=== PATIENT | female | born 1980 | race Caucasian/White ===

== ENCOUNTER → 2017-11-02 11:44 | Outpatient (REF) | payer MEDICAID, SELFPAY | LOC: NCHCN 11:44 | PROVIDERS: PCP Physician Assistant Medical; Visit Provider Physician Assistant Medical | DX: J02.9 Acute pharyngitis, unspecified (principal) | CPT/HCPCS: 87077; 87070 ==

== ENCOUNTER 2017-12-10 17:57 | Outpatient (REF) | payer MEDICAID, SELFPAY | END 2017-12-10 18:17 | LOC: NCHCN 17:57 | PROVIDERS: PCP Physician Assistant Medical; Visit Provider Physician Assistant Medical | DX: N76.0 Acute vaginitis (principal) | CPT/HCPCS: 87480; 87510; 87660 ==

== ENCOUNTER 2018-05-03 21:14 | Outpatient (REF) | payer MEDICAID, SELFPAY ==
[2018-05-03 22:35] LABS: Abs Immature Grans 0.02 k/cumm (0.0-0.09); HCT 43.9 % (36.0-46.0); HGB 14.7 g/dL (12.0-15.5); Mean Corp. HGB Concentration 33.5 g/dL (32.0-36.0); Mean Corpuscular Hemoglobin 28.4 pg (27.0-33.0); Mean Corpuscular Volume 84.7 fL (80-95); Mean Platelet Volume 11.5 fL (8.0-11.0); Platelet Count 214 x1000/uL (130-400); RBC 5.18 m/cumm (4.00-5.20); RBC Distribution Width 13.3 % (11.7-14.6); White Blood Cell Count 9.55 k/cumm (4.4-10.8)
[2018-05-03 22:51] LABS: ALT 25 U/L (12-78); AST 20 U/L (15-37); Albumin 3.8 g/dL (3.4-5.0); Alkaline Phosphatase 84 U/L (46-116); Anion Gap 11.1 mmol/L (3-11); BUN 11 mg/dL (7-18); Bilirubin, Total 0.5 mg/dL (0.2-1.0); CO2 26.9 mmol/L (21.0-32.0); CREATININE 0.73 mg/dL (0.55-1.02); Calcium 9.2 mg/dL (8.5-10.1); Chloride 99 mmol/L (98-107); Glucose 85 mg/dL (70-100); Potassium 3.7 mmol/L (3.5-5.1); Sodium 137 mmol/L (136-145); Total Protein 7.9 g/dL (6.4-8.2)
[2018-05-03 23:16] LABS: Absolute Eosinophil Count 0.48 k/cumm (0.0-0.7); Absolute Lymphocyte Count 2.39 k/cumm (1.2-3.4); Absolute Monocyte Count 0.67 k/cumm (0.11-0.7); Absolute Neutrophil Count 6.02 k/cumm (1.2-6.7); Atypical Lymphocytes % 0
[2018-05-03 23:18] LABS: Diff Comment Manual Differential; RBC Morphology Normal
== END 2018-05-03 21:34 ==
LOC: NCHCN 21:14
PROVIDERS: PCP Physician Assistant Medical; Visit Provider Physician Assistant Medical
DX: L29.9 Pruritus, unspecified (principal)
CPT/HCPCS: 80053; 84443; 85025

== ENCOUNTER 2018-06-17 09:39 | Outpatient (CLI) | payer MEDICAID, SELFPAY ==
--- NOTE | 2018-06-17 14:20 | MERGE_ITS ---
*[facility]* *[facility]* [address] [place] [address] Date of study: 06/17/2018 Transthoracic Echocardiography M-mode, complete 2D, complete spectral Doppler, and color Doppler *STUDY CONCLUSIONS* Impressions: Normal study. Summary: 1. Left ventricle: The cavity size was normal. Wall thickness was normal. Systolic function was normal. The estimated ejection fraction was 60-65%. Wall motion was normal; there were no regional wall motion abnormalities. 2. Right ventricle: The cavity size was normal. Wall thickness was normal. Systolic function was normal. 3. Atrial septum: No defect or patent foramen ovale was identified. Agitated saline contrast study showed no shunt. *PATIENT PRESENTATION* Height: 165.1cm ((65in) ) S/D Pressure: 134 / 89 Weight: 94.3kg ((207.6lb) ) BSA: 2.12m^2 Test start time: 02:20 PM. Test stop time: 03:40 PM. PERFORMING Unknown PERFORMING [facility] CONSULTING Danielle Hoskins [employer]IONAL MARKETING MANAGER Sachi Aquino Rachel REFERRING Tanya Lucero *PROCEDURE DATA* Procedure information: This study was interpreted by [facility]. Pertinent images and digital data are archived for permanent storage and are available for subsequent review. No prior study was available for comparison. Study status: Routine. Transthoracic echocardiography. M-mode, complete 2D, complete spectral Doppler, and color Doppler. A Transthoracic Echocardiogram was performed. Scanning was performed from the parasternal, apical, subcostal, and suprasternal notch acoustic windows. Images were obtained using an [employer] 2000 cardiac ultrasound machine. Study completion: The patient tolerated the procedure well. History: PMH: Hepatic Congestion. *CARDIAC ANATOMY* Left ventricle: The cavity size was normal. Wall thickness was normal. Systolic function was normal. The estimated ejection fraction was 60-65%. Wall motion was normal; there were no regional wall motion abnormalities. Aortic valve: Trileaflet; normal thickness leaflets. Mobility was not restricted. Doppler: Transvalvular velocity was within the normal range. There was no stenosis. There was no significant regurgitation. VTI ratio of LVOT to aortic valve: 0.85. Valve area (VTI): 2.6cm^2. Indexed valve area (VTI): 1.2cm^2/m^2. Peak velocity ratio of LVOT to aortic valve: 0.81. Valve area (Vmax): 2.5cm^2. Indexed valve area (Vmax): 1.2cm^2/m^2. Mean velocity ratio of LVOT to aortic valve: 0.75. Valve area (Vmean): 2.3cm^2. Indexed valve area (Vmean): 1.1cm^2/m^2. Mean gradient (S): 5.3mm Hg. Peak gradient (S): 10mm Hg. Aorta: Aortic root: The aortic root was normal in size. Ascending aorta: The ascending aorta was normal in size. Mitral valve: Structurally normal valve. Mobility was not restricted. Doppler: Transvalvular velocity was within the normal range. There was no evidence for stenosis. There was no significant regurgitation. Valve area by pressure half-time: 3.8cm^2. Indexed valve area by pressure half-time: 1.8cm^2/m^2. Peak gradient (D): 2.2mm Hg. Left atrium: The atrium was normal in size. Atrial septum: No defect or patent foramen ovale was identified. Agitated saline contrast study showed no shunt. Right ventricle: The cavity size was normal. Wall thickness was normal. Systolic function was normal. Pulmonic valve: Poorly visualized. Doppler: Transvalvular velocity was within the normal range. There was no evidence for stenosis. There was trivial regurgitation. Peak gradient (S): 4.5mm Hg. Tricuspid valve: Structurally normal valve. Doppler: Transvalvular velocity was within the normal range. There was no evidence for stenosis. There was trivial regurgitation. Pulmonary artery: Poorly visualized. Pulmonary systolic pressure was within the normal range. Right atrium: The atrium was normal in size. Pericardium: There was no pericardial effusion. Systemic veins: Inferior vena cava: The vessel was normal in size. The respirophasic diameter changes were in the normal range (greater than or equal to 50%), consistent with normal central venous pressure. Measurements Left ventricle Value Reference LV ID, ED, PLAX 5.0 cm 3.5 - 6.0 LV ID, ES, PLAX 3.1 cm 2.1 - 4.0 LV PW thickness, ED, PLAX 0.9 cm LV end-diastolic volume, 1-p A2C 87 ml LV ejection fraction, 1-p A2C 69 % LV end-diastolic volume, 1-p A4C 85 ml LV ejection fraction, 1-p A4C 66 % LV e', lateral 0.144 m/sec LV E/e', lateral 5 LV e', medial 0.095 m/sec LV E/e', medial 8 LV e', average 0.119 m/sec LV E/e', average 6 Ventricular septum Value Reference IVS thickness, ED, PLAX 0.9 cm LVOT Value Reference LVOT ID, A-P 2.0 cm LVOT area 3.1 cm^2 LVOT peak velocity, S 1.29 m/sec LVOT mean velocity, S 0.81 m/sec LVOT VTI, S 26.4 cm LVOT peak gradient, S 6.6 mm Hg LVOT mean gradient, S 3.2 mm Hg Stroke volume (SV), LVOT DP 82 ml Stroke index (SV/bsa), LVOT DP 39 ml/m^2 Aortic valve Value Reference Aortic valve peak velocity, S 1.6 m/sec Aortic valve mean velocity, S 1.09 m/sec Aortic valve VTI, S 31.0 cm Aortic mean gradient, S 5.3 mm Hg Aortic peak gradient, S 10 mm Hg VTI ratio, LVOT/AV 0.85 Aortic valve area, VTI 2.6 cm^2 Velocity ratio, peak, LVOT/AV 0.81 Aortic valve area, peak velocity 2.5 cm^2 Velocity ratio, mean, LVOT/AV 0.75 Aortic valve area, mean velocity 2.3 cm^2 Aortic valve area/bsa, mean velocity 1.1 cm^2/m^2 Aorta Value Reference Aortic root ID, ED 3.1 cm Ascending aorta ID, A-P, S 2.9 cm Left atrium Value Reference LA area, ES, A4C 19.9 cm^2 8.8 - 23.4 LA area, ES, A2C 15 cm^2 LA volume/bsa, S 25 ml/m^2 LA volume, ES, 2-p 47 ml LA volume/bsa, ES, 2-p 22 ml/m^2 Mitral valve Value Reference Mitral E-wave peak velocity 0.74 m/sec Mitral A-wave peak velocity 0.68 m/sec Mitral deceleration time 198 ms 150 - 230 Mitral pressure half-time 57 ms Mitral peak gradient, D 2.2 mm Hg Mitral E/A ratio, peak 1.09 Mitral valve area, PHT, DP 3.8 cm^2 Pulmonary arteries Value Reference PA pressure, S, DP 30 mm Hg <=30 Tricuspid valve Value Reference Tricuspid regurg peak velocity 2.5 m/sec Tricuspid peak RV-RA gradient 24.1 mm Hg Right atrium Value Reference RA area, ES, A4C 12.7 cm^2 8.3 - 19.5 Systemic veins Value Reference Estimated CVP 10 mm Hg Right ventricle Value Reference RV pressure, S, DP (H) 34 mm Hg <=30 Pulmonic valve Value Reference Pulmonic peak gradient, S 4.5 mm Hg Legend: (L) and (H) dia values outside specified reference range. I have personally reviewed the images and have reviewed and edited the reported findings. Electronically signed by Ishan Rachel 06/19/2018 20:41
== END 2018-06-17 09:59 ==
PROVIDERS: PCP Physician Assistant Medical; Visit Provider Nurse Practitioner Adult Health
DX: K76.1 Chronic passive congestion of liver (principal); Z13.6 Encounter for screening for cardiovascular disorders
CPT/HCPCS: 93306

== ENCOUNTER 2018-08-15 14:32 | Outpatient (REF) | payer MEDICAID, SELFPAY ==
[2018-08-15 21:21] LABS: ALT 27 U/L (12-78); AST 21 U/L (15-37); Albumin 3.7 g/dL (3.4-5.0); Alkaline Phosphatase 76 U/L (46-116); Bilirubin, Direct 0.11 mg/dL (0.00-0.20); Bilirubin, Total 0.4 mg/dL (0.2-1.0); Total Protein 7.1 g/dL (6.4-8.2)
== END 2018-08-15 14:52 ==
LOC: LBN 14:32
PROVIDERS: PCP Physician Assistant Medical; Visit Provider Nurse Practitioner Adult Health
DX: R79.89 Other specified abnormal findings of blood chemistry (principal); R74.8 Abnormal levels of other serum enzymes
CPT/HCPCS: 80076

== ENCOUNTER 2018-12-30 14:34 | Outpatient (REF) | payer MEDICAID, SELFPAY ==
[2018-12-30 19:25] LABS: ALT 26 U/L (14-59); AST 20 U/L (15-37); Albumin 3.6 g/dL (3.4-5.0); Alkaline Phosphatase 81 U/L (46-116); Bilirubin, Direct 0.08 mg/dL (0.00-0.20); Bilirubin, Total 0.2 mg/dL (0.2-1.0); Total Protein 7.3 g/dL (6.4-8.2)
== END 2018-12-30 14:54 ==
LOC: LBN 14:34
PROVIDERS: PCP Physician Assistant Medical; Visit Provider Nurse Practitioner Adult Health
DX: R74.8 Abnormal levels of other serum enzymes (principal)
CPT/HCPCS: 80076

== ENCOUNTER 2019-03-10 13:07 | Outpatient (REF) | payer MEDICAID, SELFPAY ==
[2019-03-10 18:43] LABS: Hemoglobin A1C 5.3 % (4.5-6.2)
[2019-03-10 18:55] LABS: TSH 0.33 uIU/mL (0.36-3.74)
[2019-03-13 08:44] LABS: Vitamin D 25 Total 25.6 ng/ml (30-100)
[2019-03-13 10:31] LABS: Thyroglobulin Antibody 119 U/mL (<=60); Thyroperoxidase Antibody 94 U/mL (<=60)
== END 2019-03-10 13:27 ==
LOC: NCHCN 13:07
PROVIDERS: PCP Physician Assistant Medical; Visit Provider Physician Assistant Medical
DX: R53.83 Other fatigue (principal); E03.9 Hypothyroidism, unspecified
CPT/HCPCS: 82306; 86376; 83036; 84443

== ENCOUNTER 2019-08-11 17:24 | Outpatient (REF) | payer MEDICAID, SELFPAY ==
[2019-08-13 07:11] LABS: COVID-19 RT-PCR Result NEGATIVE (Negative)
== END 2019-08-11 17:44 ==
LOC: NCHCN 17:24
PROVIDERS: PCP Physician Assistant Medical; Visit Provider Nurse Practitioner Family
DX: R50.9 Fever, unspecified (principal)
CPT/HCPCS: U0003

== ENCOUNTER 2019-08-29 02:17 | Outpatient (CLI) | payer MEDICAID, SELFPAY ==
--- NOTE | 2019-08-29 | DI.MAMMO_ITS ---
EXAM: MAMMO SCREENING CLINICAL HISTORY: HEALTH MAINTENANCE EXAM Z00.8 TECHNIQUE: Mammograms were interpreted according to the usual protocol including computer analysis w [employer] CAD system, tomosynthesis and C-view imaging. COMPARISON: FINDINGS: The breasts are of moderate density with fairly symmetrical distribution of fibroglandular tissue. N o dominant mass or clumped microcalcification is identified in either breast. Today's examination is a baseline examination. IMPRESSION: No specific evidence of malignancy at this time. Routine screening examinations are suggested at yea rly intervals according to the ACR guidelines. BI-RADS Cat 1 - Negative: Breast Density - Category B - Scattered areas of fibroglandular density
== END 2019-08-29 02:37 ==
PROVIDERS: PCP Physician Assistant Medical; Visit Provider Physician Assistant Medical
DX: Z12.31 Encounter for screening mammogram for malignant neoplasm of breast (principal)
CPT/HCPCS: 77063; 77067

== ENCOUNTER 2019-09-04 14:36 | Outpatient (REF) | payer MEDICAID, SELFPAY ==
[2019-09-06 19:11] LABS: COVID-19 RT-PCR UVMMC Result Negative (Negative)
== END 2019-09-04 14:56 ==
LOC: NCHCN 14:36
PROVIDERS: PCP Physician Assistant Medical; Visit Provider Nurse Practitioner Family
DX: J06.9 Acute upper respiratory infection, unspecified (principal)
CPT/HCPCS: U0003

== ENCOUNTER 2020-05-06 15:57 | Outpatient (REF) | payer MEDICAID, SELFPAY ==
[2020-05-06 19:35] LABS: Abs Immature Grans 0.01 10^3/uL (0.0-0.06); Absolute Basophil Count 0.04 10^3/uL (0.0-0.2); Absolute Eosinophil Count 0.78 10^3/uL (0.0-0.7); Absolute Lymphocyte Count 1.66 10^3/uL (1.2-3.4); Absolute Monocyte Count 0.59 10^3/uL (0.1-0.8); Absolute Neutrophil Count 5.14 10^3/uL (1.2-6.7); Basophils % 0.5; Eosinophils % 9.5; HGB 13.7 g/dL (11.2-15.7); Immature Grans % 0.1; Lymphocytes % 20.2; MCH 27.2 pg (27.0-33.0); MCHC 32.6 % (32.0-36.0); MCV 83.3 fL (80-95); Monocytes % 7.2; Neutrophils % 62.5; Nucleated RBC 0 %; Platelet Count 243 10^3/uL (130-400); RBC 5.04 10^6/uL (3.93-5.22); RDW 12.5 % (11.7-14.6); RDW-SD 38.1 fL; WBC 8.22 10^3/uL (4.4-10.8)
[2020-05-06 20:44] LABS: ALT 28 U/L (14-59); AST 22 U/L (15-37); Albumin 3.6 g/dL (3.4-5.0); Alkaline Phosphatase 86 U/L (46-116); Anion Gap 7.5 mmol/L (3-11); BUN 11 mg/dL (7-18); Bilirubin, Total 0.5 mg/dL (0.2-1.0); CO2 26.5 mmol/L (21.0-32.0); CREATININE 0.7 mg/dL (0.55-1.02); Calcium 9.1 mg/dL (8.5-10.1); Calculated LDL 95 mg/dL (<100); Chloride 103 mmol/L (98-107); Cholesterol 145 mg/dL (<200); Glucose 83 mg/dL (74-106); HDL Cholesterol 43 mg/dL (40-60); Potassium 4.1 mmol/L (3.5-5.1); Sodium 137 mmol/L (136-145); TSH 0.17 uIU/mL (0.36-3.74); Total Protein 7.5 g/dL (6.4-8.2); Triglyceride 38 mg/dL (<150)
== END 2020-05-06 15:58 | disposition home or self-care (01) ==
LOC: NCHCN 15:57
PROVIDERS: PCP Physician Assistant Medical; Visit Provider Physician Assistant Medical
DX: E03.9 Hypothyroidism, unspecified (principal); R79.89 Other specified abnormal findings of blood chemistry; N94.6 Dysmenorrhea, unspecified
CPT/HCPCS: 80053; 80061; 84443; 85025

== ENCOUNTER 2020-07-26 19:25 | Outpatient (REF) | payer MEDICAID, SELFPAY ==
[2020-07-28 11:02] LABS: COVID-19 RT-PCR UVMMC Result Negative (Negative)
== END 2020-07-26 19:26 | disposition home or self-care (01) ==
LOC: NCHCN 19:25
PROVIDERS: PCP Physician Assistant Medical; Visit Provider Physician Assistant Medical
DX: Z20.822 Contact with and (suspected) exposure to COVID-19 (principal)
CPT/HCPCS: U0003

== ENCOUNTER 2020-07-30 15:14 | Outpatient (REF) | payer MEDICAID, SELFPAY ==
[2020-07-31 15:16] LABS: COVID-19 RT-PCR UVMMC Result Negative (Negative)
== END 2020-07-30 15:15 | disposition home or self-care (01) ==
LOC: NCHCN 15:14
PROVIDERS: PCP Physician Assistant Medical; Visit Provider Physician Assistant Medical
DX: Z20.822 Contact with and (suspected) exposure to COVID-19 (principal)
CPT/HCPCS: U0003

== ENCOUNTER 2020-08-02 17:52 | Outpatient (REF) | payer MEDICAID, SELFPAY ==
[2020-08-03 15:53] LABS: COVID-19 RT-PCR UVMMC Result Negative (Negative)
== END 2020-08-02 17:53 | disposition home or self-care (01) ==
LOC: NCHCN 17:52
PROVIDERS: PCP Physician Assistant Medical; Visit Provider Physician Assistant Medical
DX: Z20.822 Contact with and (suspected) exposure to COVID-19 (principal)
CPT/HCPCS: U0003

== ENCOUNTER 2020-11-21 15:51 | Outpatient (REF) | payer MEDICAID, SELFPAY ==
[2020-11-22 11:21] LABS: COVID-19 RT-PCR UVMMC Result Negative (Negative)
== END 2020-11-21 15:52 | disposition home or self-care (01) ==
LOC: NCHCN 15:51
PROVIDERS: PCP Physician Assistant Medical; Visit Provider Physician Assistant Medical
DX: Z20.822 Contact with and (suspected) exposure to COVID-19 (principal)
CPT/HCPCS: U0003

== ENCOUNTER 2020-12-18 12:06 | Outpatient (REF) | payer MEDICAID, SELFPAY ==
[2020-12-19 01:50] LABS: COVID-19 RT-PCR UVMMC Result Negative (Negative)
== END 2020-12-18 12:07 | disposition home or self-care (01) ==
LOC: NCHCN 12:06
PROVIDERS: Visit Provider Physician Assistant Medical
DX: Z11.52 Encounter for screening for COVID-19 (principal)
CPT/HCPCS: U0003

== ENCOUNTER 2020-12-31 10:08 | Outpatient (REF) | payer MEDICAID, SELFPAY ==
[2021-01-01 16:28] LABS: COVID-19 RT-PCR UVMMC Result Negative (Negative)
== END 2020-12-31 10:09 | disposition home or self-care (01) ==
LOC: NCHCN 10:08
PROVIDERS: Visit Provider Physician Assistant Medical
DX: Z20.822 Contact with and (suspected) exposure to COVID-19 (principal); R51.9 Headache, unspecified
CPT/HCPCS: U0003

== ENCOUNTER 2021-01-08 11:40 | Outpatient (REF) | payer MEDICAID, SELFPAY ==
[2021-01-10 01:01] LABS: COVID-19 RT-PCR UVMMC Result Negative (Negative)
== END 2021-01-08 11:41 | disposition home or self-care (01) ==
LOC: NCHCN 11:40
PROVIDERS: Visit Provider Nurse Practitioner Family
DX: Z20.822 Contact with and (suspected) exposure to COVID-19 (principal); R51.9 Headache, unspecified
CPT/HCPCS: U0003

== ENCOUNTER 2021-02-14 09:19 | Outpatient (REF) | payer MEDICAID, SELFPAY ==
[2021-02-15 12:50] LABS: COVID-19 RT-PCR UVMMC Result Negative (Negative)
== END 2021-02-14 09:20 | disposition home or self-care (01) ==
LOC: NCHCN 09:19
PROVIDERS: Visit Provider Physician Assistant Medical
DX: Z20.822 Contact with and (suspected) exposure to COVID-19 (principal); R51.9 Headache, unspecified
CPT/HCPCS: U0003

== ENCOUNTER 2021-02-17 08:15 | Outpatient (REF) | payer MEDICAID, SELFPAY ==
[2021-02-19 12:45] LABS: COVID-19 RT-PCR UVMMC Result Negative (Negative)
== END 2021-02-17 08:16 | disposition home or self-care (01) ==
LOC: NCHCN 08:15
PROVIDERS: Visit Provider Physician Assistant Medical
DX: Z20.822 Contact with and (suspected) exposure to COVID-19 (principal); R51.9 Headache, unspecified
CPT/HCPCS: U0003

== ENCOUNTER 2021-02-28 14:54 | Outpatient (REF) | payer MEDICAID, SELFPAY ==
[2021-03-01 02:16] LABS: COVID-19 RT-PCR UVMMC Result Negative (Negative)
== END 2021-02-28 14:55 | disposition home or self-care (01) ==
LOC: NCHCN 14:54
PROVIDERS: PCP Physician Assistant Medical; Visit Provider Physician Assistant Medical
DX: Z20.822 Contact with and (suspected) exposure to COVID-19 (principal); R09.81 Nasal congestion
CPT/HCPCS: U0003

== ENCOUNTER 2021-03-03 18:37 | Outpatient (REF) | payer MEDICAID, SELFPAY ==
[2021-03-04 20:24] LABS: COVID-19 RT-PCR UVMMC Result Negative (Negative)
== END 2021-03-03 18:38 | disposition home or self-care (01) ==
LOC: NCHCN 18:37
PROVIDERS: PCP Physician Assistant Medical; Visit Provider Physician Assistant Medical
DX: Z20.822 Contact with and (suspected) exposure to COVID-19 (principal); R05.8 Other specified cough
CPT/HCPCS: U0003

== ENCOUNTER 2021-03-17 12:15 | Outpatient (REF) | payer MEDICAID, SELFPAY ==
[2021-03-18 20:15] LABS: COVID-19 RT-PCR UVMMC Result Negative (Negative)
== END 2021-03-17 12:16 | disposition home or self-care (01) ==
LOC: NCHCN 12:15
PROVIDERS: PCP Physician Assistant Medical; Visit Provider Physician Assistant Medical
DX: Z20.822 Contact with and (suspected) exposure to COVID-19 (principal); R09.81 Nasal congestion
CPT/HCPCS: U0003

== ENCOUNTER 2021-04-04 15:04 | Outpatient (REF) | payer MEDICAID, SELFPAY ==
[2021-04-06 18:47] LABS: COVID-19 RT-PCR UVMMC Result Negative (Negative)
== END 2021-04-04 15:05 | disposition home or self-care (01) ==
LOC: NCHCN 15:04
PROVIDERS: PCP Physician Assistant Medical; Visit Provider Physician Assistant Medical
DX: Z20.822 Contact with and (suspected) exposure to COVID-19 (principal)
CPT/HCPCS: U0003

== ENCOUNTER 2021-04-09 15:15 | Outpatient (REF) | payer MEDICAID, SELFPAY ==
[2021-04-10 16:06] LABS: COVID-19 RT-PCR UVMMC Result Negative (Negative)
== END 2021-04-09 15:16 | disposition home or self-care (01) ==
LOC: NCHCN 15:15
PROVIDERS: PCP Physician Assistant Medical; Visit Provider Physician Assistant Medical
DX: Z20.822 Contact with and (suspected) exposure to COVID-19 (principal)
CPT/HCPCS: U0003

== ENCOUNTER 2021-04-23 09:29 | Outpatient (REF) | payer MEDICAID, SELFPAY ==
[2021-04-23 23:18] LABS: COVID-19 RT-PCR UVMMC Result Negative (Negative)
== END 2021-04-23 09:30 | disposition home or self-care (01) ==
LOC: NCHCN 09:29
PROVIDERS: PCP Physician Assistant Medical; Visit Provider Physician Assistant Medical
DX: Z20.822 Contact with and (suspected) exposure to COVID-19 (principal); R09.81 Nasal congestion
CPT/HCPCS: U0003

== ENCOUNTER 2021-04-25 15:10 | Outpatient (REF) | payer MEDICAID, SELFPAY ==
--- NOTE | 2021-04-25 14:00 | PAPFT_PTH ---
PATIENT: Melany Mills LOC: [facility] U#:[id number] AGE/SX: 40/F ROOM: RE04/25/[address]: Tania Mathias MD : 1980 BED: DIS: 04/25/2021 SPEC #: [id number] RECD: 04/25/21 16:57 STATUS: ANDRA REQ #: [id number] SYDNEE: 04/25/21 14:[address]: Tania Mathias [facility]PT[facility] Cytology RECD BY: Page Cesar ENTERED: 04/25/21 16:58 SP TYPE: PAPFT OTHR DR: Danielle Hoskins Tissues: 1 - CX/ENDOCX FOR PAP SMEARS Procedures: PAP THIN PREP/UVM Screening HPV DNA PROBE Comments: [id number]
--- NOTE | 2021-04-25 14:00 | ENDOMET_PTH ---
PATIENT: Melany Mills LOC: [facility] U#:[id number] AGE/SX: 40/F ROOM: RE04/25/[address]: Tania Mathias MD : 1980 BED: DIS: 04/25/2021 SPEC #: [id number] RECD: 04/25/21 16:49 STATUS: ANDRA REQ #: [id number] SYDNEE: 04/25/21 14:[address]: Tania Mathias DEPT: Surgical Specimen RECD BY: Page Cesar ENTERED: 04/25/21 16:50 SP TYPE: Endomet OTHR DR: Danielle Hoskins Tissues: 1 - ENDOMETRIUM BX/CURRETTE Procedures: GROSS AND MICRO LEVEL 4 Comments: [id number]
== END 2021-04-25 15:11 | disposition home or self-care (01) ==
LOC: LBN 15:10
PROVIDERS: PCP Physician Assistant Medical; Visit Provider Obstetrics & Gynecology
DX: N93.8 Other specified abnormal uterine and vaginal bleeding (principal)
CPT/HCPCS: 88142; 88305; 87624

== ENCOUNTER 2021-05-01 15:59 | Outpatient (REF) | payer MEDICAID, SELFPAY ==
[2021-05-01 21:13] LABS: COVID-19 RT-PCR UVMMC Result Negative (Negative)
== END 2021-05-01 16:00 | disposition home or self-care (01) ==
LOC: NCHCN 15:59
PROVIDERS: PCP Physician Assistant Medical; Visit Provider Physician Assistant Medical
DX: Z20.822 Contact with and (suspected) exposure to COVID-19 (principal)
CPT/HCPCS: U0003

== ENCOUNTER 2021-05-06 01:11 | Outpatient (CLI) | payer MEDICAID, SELFPAY ==
--- NOTE | 2021-05-06 08:00 | DI.US_ITS ---
Exam(s) US PELVIS TRANSVAGINAL EXAM: US PELVIS TRANSVAGINAL CLINICAL HISTORY: check fibroids,PELVIC PRESSURE,R10.2. TECHNIQUE: Transabdominal and transvaginal pelvic ultrasound was performed using standard protocol. COMPARISON: US PELVIS TRANSVAG from 08/05/2016 FINDINGS: KIDNEYS: Kidneys are symmetric in size. No evidence of renal calculi. No evidence of hydronephrosis. No renal mass or cyst identified. UTERUS: Position: Anteverted. Size: 8 long by 5 AP by 5.1 transverse cm Endometrium: 0.3 cm. Normal for patient's menstrual status. Myometrium: Heterogeneous. The previously noted area in the posterior body of the uterus is not well evaluated on this current examination. The fundus of the uterus has a heterogeneous appearance. An ill-defined area up to 4.1 cm is seen and may represent a fibroid. Cervix: Unremarkable. OVARIES: Right: 3 x 2.4 x 1.9 cm Cyst or mass: None. Left: 1.9 x 2.6 x 1.5 cm Cyst or mass: None. DOPPLER: Color: Symmetric and uniform flow to both ovaries. No hyperemia. CUL-DE-SAC: Free fluid: None. Other: None. IMPRESSION: 1. Normal sonographic appearance of the kidneys. 2. Heterogeneous uterus. The previously seen posterior uterine body fibroid cannot be seen on the cu rrent examination. There is a question of a fundal uterine fibroid. If there is continued clinical concern, an MRI may be obtained for further evaluation. 3. Unremarkable bilateral ovaries. DATA REPOSITORY:
== END 2021-05-06 01:31 ==
PROVIDERS: PCP Physician Assistant Medical; Visit Provider Obstetrics & Gynecology
DX: R10.2 Pelvic and perineal pain (principal); D25.9 Leiomyoma of uterus, unspecified
CPT/HCPCS: 76830; 76856

== ENCOUNTER 2021-05-20 10:41 | Outpatient (REF) | payer MEDICAID, SELFPAY ==
[2021-05-21 09:29] LABS: COVID-19 RT-PCR UVMMC Result Positive (Negative)
== END 2021-05-20 10:42 | disposition home or self-care (01) ==
LOC: NCHCN 10:41
PROVIDERS: PCP Physician Assistant Medical; Visit Provider Physician Assistant Medical
DX: Z20.822 Contact with and (suspected) exposure to COVID-19 (principal)
CPT/HCPCS: U0003

== ENCOUNTER 2021-06-10 18:22 | Outpatient (REF) | payer MEDICAID, SELFPAY ==
[2021-06-10 12:59] LABS: TSH (W/Ref FT4) 0.29 uIU/mL (0.36-3.74)
[2021-06-10 13:16] LABS: FREE T4 1.47 ng/dL (0.76-1.46)
== END 2021-06-10 18:23 | disposition home or self-care (01) ==
LOC: NCHCN 18:22
PROVIDERS: PCP Physician Assistant Medical; Visit Provider Physician Assistant Medical
DX: E03.9 Hypothyroidism, unspecified (principal)
CPT/HCPCS: 84439; 84443

== ENCOUNTER 2021-11-24 10:52 | Outpatient (REF) | payer MEDICAID, SELFPAY | END 2021-11-24 10:53 | disposition home or self-care (01) | LOC: NCHCN 10:52 | PROVIDERS: PCP Physician Assistant Medical; Visit Provider Physician Assistant Medical | DX: E03.9 Hypothyroidism, unspecified (principal) | CPT/HCPCS: 84443 ==

== ENCOUNTER → 2022-02-24 12:35 | Outpatient (CLI) | payer MEDICAID, SELFPAY ==
--- NOTE | 2022-02-24 | DI.RAD_ITS ---
Exam(s) XR CHEST 2V PA LATERAL EXAM: XR CHEST 2V PA LATERAL CLINICAL HISTORY: COUGH 3-4 WKS, R05.8, ? INFECTIOUS PROCESS TECHNIQUE: 2D digital imaging was performed of the chest. Two images were obtained. PA and lateral views were obtained. COMPARISON: No exams were available for comparison FINDINGS: MEDIASTINUM: Normal. HEART: Normal. PULMONARY VASCULATURE: Normal. LUNGS: Clear. PLEURAL SPACE: No pleural effusion or pneumothorax. BONE:Within normal limits for the patient's age. OTHER FINDINGS:Normal. IMPRESSION: No acute pulmonary findings. DATA REPOSITORY: RADIATION DOSE DELIVERED:
== END ==
PROVIDERS: PCP Physician Assistant Medical; Visit Provider Nurse Practitioner Family
DX: R05.8 Other specified cough (principal)
CPT/HCPCS: 71046

== ENCOUNTER 2022-07-31 15:41 | Outpatient (REF) | payer MEDICAID, SELFPAY ==
[2022-07-31 16:20] LABS: ALT 40 U/L (14-59); AST 27 U/L (15-37); Albumin 3.8 g/dL (3.4-5.0); Alkaline Phosphatase 112 U/L (46-116); Anion Gap 10.1 mmol/L (3-11); BUN 12 mg/dL (7-18); Bilirubin, Total 0.3 mg/dL (0.2-1.0); CO2 24.9 mmol/L (21.0-32.0); CREATININE 0.8 mg/dL (0.55-1.02); Calcium 9.2 mg/dL (8.5-10.1); Calculated LDL 112 mg/dL (<100); Chloride 102 mmol/L (98-107); Cholesterol 177 mg/dL (<200); Glucose 102 mg/dL (74-106); HDL Cholesterol 45 mg/dL (40-60); Potassium 3.9 mmol/L (3.5-5.1); Sodium 137 mmol/L (136-145); TSH 4.75 uIU/mL (0.36-3.74); Total Protein 8.4 g/dL (6.4-8.2); Triglyceride 101 mg/dL (<150)
== END 2022-07-31 15:42 | disposition home or self-care (01) ==
LOC: NCHCN 15:41
PROVIDERS: PCP Physician Assistant Medical; Visit Provider Physician Assistant Medical
DX: R79.89 Other specified abnormal findings of blood chemistry (principal); E03.9 Hypothyroidism, unspecified
CPT/HCPCS: 80053; 80061; 84443

== ENCOUNTER 2022-08-10 02:53 | Outpatient (CLI) | payer MEDICAID, SELFPAY ==
[2022-08-10 15:30] LABS: HCT 38.4 % (36.0-46.0); HGB 12.5 g/dL (11.2-15.7); MCH 25.6 pg (27.0-33.0); MCHC 32.6 % (32.0-36.0); MCV 79 fL (80-95); Platelet Count 264 10^3/uL (130-400); RBC 4.88 10^6/uL (3.93-5.22); RDW 13.8 % (11.7-14.6); RDW-SD 39.1 fL; WBC 9.17 10^3/uL (4.4-10.8)
== END 2022-08-10 02:54 | disposition home or self-care (01) ==
LOC: LBO 02:53
PROVIDERS: PCP Physician Assistant Medical; Visit Provider Obstetrics & Gynecology
DX: N92.0 Excessive and frequent menstruation with regular cycle (principal); Z01.818 Encounter for other preprocedural examination; Z01.812 Encounter for preprocedural laboratory examination
CPT/HCPCS: 36415; 85027; 86850; 86900; 86901

== ENCOUNTER 2022-08-12 06:13 | Day surgery (SDC) | payer MEDICAID, SELFPAY ==
[2022-08-12] VITALS (7 sets, daily range): BP systolic 117–141; BP diastolic 60–93; PULSE 70–88; RESP 14–18; TEMP 36.2–37.1; O2SAT 94–100; BMI 43.0
[2022-08-12] MEDS: Lactated Ringers 1,000 ML 125 ML IV (07:05)
--- NOTE | 2022-08-12 07:14 | W.ANESPRE ---
General Info Date of Service Date Performed: 08/12/22 Height: 5 ft 5 in Weight: 117.3 kg Body Mass Index (BMI): 43.0 Surgical Procedure: Operation Date: 08/12/22 07:40 Proposed Procedure Side Surgeon p Endometrial Ablation- Isaias Mathias MD Meds Allergies and Home Medications Allergies Allergy/AdvReac Type Severity Reaction Status Date / Time erythromycin base AdvReac Intermediate hives all Unverified 08/12/22 06:28 over body Home Medication Medication Instructions Recorded ibuprofen 200 mg capsule 200 mg PO PRN 08/20/16 multivitamin (Daily Multiple 1 ea PO DAILY 08/20/16 tablet) citalopram 20 mg tablet (Celexa) 20 mg PO DAILY 02/12/20 levothyroxine 175 mcg tablet 175 mcg PO DAILY 02/12/20 Current Visit Medications: Current Medications Generic Name Dose Route Start Last Admin Trade Name Freq PRN Reason Stop Dose Admin Ringer's Solution 1,000 mls @ 125 mls/hr 08/12/22 06:00 08/12/22 07:05 IV 09/10/22 23:59 125 mls/hr INFUSION GARO Administration IV Miscellaneous Supplies 1 each 08/12/22 06:00 Iv Access IV 09/10/22 23:59 DIRECTED GARO Sodium Chloride 0 ml 08/12/22 06:00 Normal Saline Flush 10 Ml Syr IV 09/10/22 23:59 PRN PRN Sodium Chloride 0 ml 08/12/22 06:00 Normal Saline 10 Ml Vial IJ 09/10/22 23:59 DIRECTED PRN Sterile Water 0 ml 08/12/22 06:00 Water,Injection,Sterile 10 Ml Vial IJ 09/10/22 23:59 DIRECTED PRN PFSH Active Problems Active Problems: Problem Status Onset Code 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 Chronic depression F32.9 Medical History Medical History (Updated 08/12/22 @ 07:07 by Ela Nichols RN) BMI 40.0-44.9, adult Hypothyroid Irregular bleeding Otalgia, right ear Pelvic pain Pelvic pressure in female Sleep apnea ARIELLE (stress urinary incontinence, female) Uterine leiomyoma (08/20/16) Medical History Comments:: pt was never totally out for either biopsy (liver or thyroid) so no significant anesthesia history Surgical History Surgical History (Updated 08/12/22 @ 06:28 by Ela Nichols RN) History of liver biopsy S/P thyroidectomy pt reports only having biopsy to thyroid done Tobacco Smoking/Tobacco Use Status: Former Tobacco Use Passive smoking exposure: No Alcohol Alcohol Intake: current Alcohol intake frequency: a few times a month Substance Use Substance use: Never Details: alcohol t-3, 1 beer Prental History History 1 Para 1 Hx # Term Pregnancies Multiple births Hx # Pregnancies Ectopic pregnancies AB induced Hx Number of Living Children AB spontaneous Past Pregnancies Del. Date GA/Weeks # Preg Succ Route Wgt Sex Labor Lgth Anesthesia Location Prov [facility] 11/14/00 40 No vaginal 3798.836 g Male LR Vital Signs and Lab Results Vital Signs Most Recent Vital Signs in EMR: Most Recent Vital Signs Temp Pulse Resp BP Pulse Ox 37.1 C 70 18 141/93 H 97 08/12/22 06:29 08/12/22 06:29 08/12/22 06:29 08/12/22 06:29 08/12/22 06:29 Point of Care Results Point of Care Results: POC- Test(urine) Negative 08/12/22 06:51 Lab Results Blood Type / Crossmatch: Patient ABO/Rh O Negative 08/10/22 Antibody Screen NEGATIVE 08/10/22 Complete Blood Count: White Blood Count 9.17 10^3/uL (4.4-10.8) 08/10/22 15:05 Red Blood Count 4.88 10^6/uL (3.93-5.22) 08/10/22 15:05 Hemoglobin 12.5 g/dL (11.2-15.7) 08/10/22 15:05 Hematocrit 38.4 % (36.0-46.0) 08/10/22 15:05 Platelet Count 264 10^3/uL (130-400) 08/10/22 15:05 Complete Metabolic Panel: Sodium 137 mmol/L (136-145) 07/31/22 13:00 Potassium 3.9 mmol/L (3.5-5.1) 07/31/22 13:00 Chloride 102 mmol/L (98-107) 07/31/22 13:00 Carbon Dioxide 24.9 mmol/L (21.0-32.0) 07/31/22 13:00 BUN 12 mg/dL (7-18) 07/31/22 13:00 Creatinine 0.8 mg/dL (0.55-1.02) 07/31/22 13:00 Est GFR (CKD-EPI 2020) 93.70 (mL/min/1.73m2) 07/31/22 13:00 Calcium 9.2 mg/dL (8.5-10.1) 07/31/22 13:00 Albumin 3.8 g/dL (3.4-5.0) 07/31/22 13:00 Glucose 102 mg/dL (74-106) 07/31/22 13:00 Liver Function Panel: Alanine Aminotransferase (ALT/SGPT) 40 U/L (14-59) 07/31/22 13:00 Aspartate Amino Transf (AST/SGOT) 27 U/L (15-37) 07/31/22 13:00 Coagulation Panel: No Data to Display Cardiac Panel: No Data to Display Arterial Blood Gas: No Data to Display Venous Blood Gas: No Data to Display Pancreas Panel: No Data to Display Thyroid Panel: Thyroid Stimulating Hormone (TSH) 4.75 uIU/mL (0.36-3.74) H 07/31/22 13:00 Infectious Disease: No Data to Display Blood Cultures: No Data to Display Toxicology Panel: No Data to Display Panel: No Data to Display Anesthesia Assessment and Plan Anesthesia History Personal History: No History of Anesthesia Complications Family History: No Family History of Anesthesia Complications Exercise Tolerance Exercise Tolerance: Metabolic Equivalents>4 Pertinent Negatives Pertinent Negatives: No Symptoms of GERD Cardiac & Pulmonary Exam Cardiac Exam: Normal S1/S2 Heart Sounds Pulmonary Exam: Clear Bilateral Breath Sounds Implantable Cardiac Device Does patient have a Pacemaker or an ICD?: No Airway Exam Known Difficult Airway: No Mallampati Class: 2 Mouth Opening: Normal (> 3cm) Thyromental Distance: Greater than 3 cm Neck Range of Motion: Full ROM Neck Circumference: Normal Teeth Condition: Normal Dentition ASA Classification ASA Score: ASA 1 Emergency Case?: No NPO Status NPO Status: NPO Clears >2 hours, Solids >8 hours Status Status: Not Relevant due to Medical History Anesthesia Plan Resuscitation Status: Full Code Anesthesia Technique: General Anesthesia Airway Planned: LMA Monitors Used: Standard Monitors
--- NOTE | 2022-08-12 08:17 | ROE_ITS ---
Date of service: 08/12/22 Time of Service: 07:30 Operative Note Operative Note DATE OF PROCEDURE: 08/12/22 PRE-OP DIAGNOSIS: Abnormal uterine bleeding POST-OP DIAGNOSIS: same PROCEDURE: Novasure endometrial ablation SURGEON: Tania Mathias Refer to Anesthesia Record ESTIMATED BLOOD LOSS: 0 COMPLICATIONS: None Patient was transported to: PACU Patient's condition: stable Indications: Pt has had heavy bleeding for a while refractory to nexplanon. She tried an IUD that fell out. She had a benign endometrial biopsy. Her has a vasectomy and she desires more definitive treatment with endometrial ablation. Findings: Normal external genitalia and normal sized uterus. Total length 10.5cm Cavity length 5cm Cavity width 4.6cm Total time for ablation: 1min 20sec Procedure Description: After informed consent was signed the patient was taken to the operating room and given General room air anesthesia.? SCDs were placed on her legs.? She was prepped and draped in the dorsal lithotomy position in the [facility].? A time out was performed. Her bladder was drained of urine if not done just prior to arrival to the room.? Exam under anesthesia revealed normal external genitalia, vagina normal for age and a normal sized uterus. A speculum was placed into the vagina to reveal the cervix.? The anterior lip of the cervix was grasped with a single tooth tenaculum.? The cervical length was measured with a large dilator. The cervix was then dilated until a uterine sound could be inserted to measure the total length. The?cavity length was then calculated. The novasure device was opened and the cavity length set. It was inserted into the endometrial cavity and the width was measured. The cavity assessment was performed and passed. The device was then deployed for the appropriate amount of time. The device was removed and the wand inspected and appeared thoroughly charred. The tenaculum was removed from the cervix with good hemostasis.? The speculum was removed from the vagina. The patient was placed back into the supine position.? She was moved to the stretcher and taken to the recovery room in stable condition.
--- NOTE | 2022-08-12 08:36 | W.ANESPOSTOP ---
Postoperative Evaluation Date, Time and Location Date Performed: 08/12/22 Time Performed: 08:37 Patient Location: PACU Vital Signs Most Recent Imported Vital Signs: Most Recent Vital Signs Temp Pulse Resp BP Pulse Ox 36.7 C 81 15 130/78 98 08/12/22 08:25 08/12/22 08:25 08/12/22 08:25 08/12/22 08:25 08/12/22 08:25 Pain Score Most Recent Pain Score: Most Recent Pain Score Pain Level 0 08/12/22 08:25 Assessment Mental Status: Awake (Alert & Oriented to Patient Baseline) Airway and Respiratory Function: Patent airway with normal (patient baseline) respiratory exam Cardiovascular Function: Hemodynamically Stable Hydration Status: Adequately Hydrated Nausea & Vomiting: No Nausea or Vomiting Pain: Pt. Denies Any Pain Peripheral Nerve Block: Patient did not receive a nerve block
--- NOTE | 2022-08-12 10:23 | PDOC.DSDIS_ITS ---
Date of service: 08/12/22 Time of Service: 09:00 Discharge Plan Disposition Patient Disposition: Home Discharge Details Attending Provider: Tania Mathias Primary Care Provider: Danielle Hoskins Home Meds and New Rx's Prescriptions: No Action citalopram [Celexa] 20 mg tablet 20 mg PO DAILY levothyroxine 175 mcg tablet 175 mcg PO DAILY multivitamin [Daily Multiple] 1 EACH tablet 1 ea PO DAILY ibuprofen 200 MG capsule 200 mg PO PRN Discharge Instructions Stand Alone Forms: Anesthesia Discharge Inst., DSU Post RADIO STATION AUDIO ENGINEER Surgery, Rohini Lindsay (DSU)
== END 2022-08-12 09:49 | disposition home or self-care (01) ==
PROVIDERS: PCP Physician Assistant Medical; Visit Provider Obstetrics & Gynecology
PROC: (CPT 58353; principal; 2022-08-12 07:30)
DX: N93.9 Abnormal uterine and vaginal bleeding, unspecified (principal); R10.2 Pelvic and perineal pain
CPT/HCPCS: 58563; 81025; J1100; J1885; J2250; J2405; J2704; J3010

== ENCOUNTER 2022-11-20 18:13 | Outpatient (REF) | payer MEDICAID, SELFPAY ==
[2022-11-20 18:52] LABS: ESR 35 mm/hr (0-20)
[2022-11-20 19:09] LABS: TSH 0.08 uIU/mL (0.36-3.74)
[2022-11-23 09:49] LABS: Lyme Ab w Rflx to Lyme Confirm Negative (Negative)
[2022-11-24 20:21] LABS: Anaplasma phagocytophilum Negative (Negative); B. miyamotoi PCR Negative (Negative); Babesia divergens/MO-1 Negative (Negative); Babesia duncani Negative (Negative); Babesia microti Negative (Negative); Ehrlichia chaffeensis Negative (Negative); Ehrlichia ewingii/canis Negative (Negative); Ehrlichia muris eauclairensis Negative (Negative)
== END 2022-11-20 18:14 | disposition home or self-care (01) ==
LOC: NCHCN 18:13
PROVIDERS: PCP Physician Assistant Medical; Visit Provider Physician Assistant Medical
DX: E03.9 Hypothyroidism, unspecified (principal); M25.511 Pain in right shoulder; Z11.8 Encounter for screening for other infectious and parasitic diseases; R70.0 Elevated erythrocyte sedimentation rate
CPT/HCPCS: 85652; 87798; 84443; 86618

== ENCOUNTER 2023-03-09 09:24 | Outpatient (REF) | payer BC, SELFPAY ==
[2023-03-09 17:07] LABS: Vitamin D 25 Total 23.1 ng/mL (30-100)
[2023-03-09 17:31] LABS: TSH 0.61 uIU/mL (0.36-3.74)
== END 2023-03-09 09:25 | disposition home or self-care (01) ==
LOC: NCHCN 09:24
PROVIDERS: PCP Physician Assistant Medical; Visit Provider Physician Assistant Medical
DX: E03.9 Hypothyroidism, unspecified (principal); F32.A Depression, unspecified
CPT/HCPCS: 82306; 84443

== ENCOUNTER 2023-04-27 16:29 | Outpatient (REF) | payer BC, SELFPAY ==
[2023-04-27 15:27] LABS: Abs Immature Grans 0.02 10^3/uL (0.0-0.06); Absolute Basophil Count 0.03 10^3/uL (0.0-0.2); Absolute Eosinophil Count 0.19 10^3/uL (0.0-0.7); Absolute Lymphocyte Count 1.79 10^3/uL (1.2-3.4); Absolute Monocyte Count 0.76 10^3/uL (0.1-0.8); Absolute Neutrophil Count 3.19 10^3/uL (1.2-6.7); Basophils % 0.5; Eosinophils % 3.2; HCT 38.5 % (36.0-46.0); HGB 12.4 g/dL (11.2-15.7); Immature Grans % 0.3; Lymphocytes % 29.9; MCH 25.9 pg (27.0-33.0); MCHC 32.2 % (32.0-36.0); MCV 80 fL (80-95); Monocytes % 12.7; Neutrophils % 53.4; RBC 4.79 10^6/uL (3.93-5.22); RDW 16.9 % (11.7-14.6); RDW-SD 49.5 fL; WBC 5.98 10^3/uL (4.4-10.8)
[2023-04-27 15:39] LABS: AST 745 U/L (15-37); Albumin 3.4 g/dL (3.4-5.0); Alkaline Phosphatase 380 U/L (46-116); Anion Gap 9.4 mmol/L (3-11); BUN 9 mg/dL (7-18); Bilirubin, Total 1.7 mg/dL (0.2-1.0); CO2 25.6 mmol/L (21.0-32.0); CREATININE 0.6 mg/dL (0.55-1.02); Calcium 8.8 mg/dL (8.5-10.1); Chloride 99 mmol/L (98-107); Estimated GFR 114.15 (mL/min/1.73m2); Glucose 91 mg/dL (74-106); Potassium 3.8 mmol/L (3.5-5.1); Sodium 134 mmol/L (136-145); Total Protein 8.9 g/dL (6.4-8.2)
[2023-04-27 15:55] LABS: Diff Comment Diff Reviewed; RBC Morphology Normal
[2023-04-27 16:30] LABS: ALT 1157 U/L (14-59)
[2023-04-27 17:19] LABS: Hemoglobin A1C 4.9 % (<5.7)
== END 2023-04-27 16:30 | disposition home or self-care (01) ==
LOC: NCHCN 16:29
PROVIDERS: PCP Physician Assistant Medical; Visit Provider Physician Assistant Medical
DX: R79.89 Other specified abnormal findings of blood chemistry (principal); E03.9 Hypothyroidism, unspecified; E66.8 Other obesity; R82.998 Other abnormal findings in urine
CPT/HCPCS: 80053; 83036; 85025

== ENCOUNTER 2023-04-29 14:14 | Outpatient (REF) | payer BC, SELFPAY ==
[2023-04-29 15:04] LABS: Platelet Count 155 10^3/uL (130-400)
[2023-05-03 10:11] LABS: Hepatitis A Antibody IgM Negative (Negative); Hepatitis B Core Antibody Negative (Negative); Hepatitis B surface Ag Negative (Negative); Hepatitis C Ab w Rflx HCV PCR Negative (Negative)
[2023-05-03 12:37] LABS: Smooth Muscle Ab Screen Positive (Negative)
[2023-05-03 15:38] LABS: Smooth Muscle Ab Titer Positive 1:40 (Negative)
[2023-05-03 16:42] LABS: Liver/Kidney Microsome Type 1 <5.0 U
[2023-05-04 12:27] LABS: ANA Interpretation Positive (Negative); ANA Titer Pattern 1:640 Homogeneous
== END 2023-04-29 14:15 | disposition home or self-care (01) ==
LOC: NCHCN 14:14
PROVIDERS: PCP Physician Assistant Medical; Visit Provider Physician Assistant Medical
DX: R94.5 Abnormal results of liver function studies (principal)
CPT/HCPCS: 86256; 86704; 86709; 86803; 87340; 85049; 85610; 85730; 86038; 86255

== ENCOUNTER 2023-05-04 15:04 | Outpatient (REF) | payer BC, SELFPAY ==
[2023-05-04 19:33] LABS: ALT 983 U/L (14-59); AST 723 U/L (15-37); Albumin 3.3 g/dL (3.4-5.0); Alkaline Phosphatase 346 U/L (46-116); Bilirubin, Direct 1.9 mg/dL (0.0-0.2); Bilirubin, Total 2.5 mg/dL (0.2-1.0); Total Protein 8.3 g/dL (6.4-8.2)
== END 2023-05-04 15:05 | disposition home or self-care (01) ==
LOC: NCHCN 15:04
PROVIDERS: PCP Physician Assistant Medical; Visit Provider Physician Assistant Medical
DX: K75.4 Autoimmune hepatitis (principal); R74.01 Elevation of levels of liver transaminase levels
CPT/HCPCS: 80076

== ENCOUNTER 2023-05-13 04:44 | Outpatient (CLI) | payer BC, SELFPAY ==
[2023-05-13 16:07] LABS: Abs Immature Grans 0.01 10^3/uL (0.0-0.06); Absolute Basophil Count 0.03 10^3/uL (0.0-0.2); Absolute Eosinophil Count 0.21 10^3/uL (0.0-0.7); Absolute Lymphocyte Count 1.54 10^3/uL (1.2-3.4); Absolute Monocyte Count 0.67 10^3/uL (0.1-0.8); Absolute Neutrophil Count 3.53 10^3/uL (1.2-6.7); Basophils % 0.5; Eosinophils % 3.5; HCT 40.3 % (36.0-46.0); HGB 13.3 g/dL (11.2-15.7); Immature Grans % 0.2; Lymphocytes % 25.7; MCH 26.9 pg (27.0-33.0); MCV 81 fL (80-95); MPV 10.8 fL (8.0-11.0); Monocytes % 11.2; Neutrophils % 58.9; Platelet Count 113 10^3/uL (130-400); RBC 4.95 10^6/uL (3.93-5.22); RDW 17.6 % (11.7-14.6); RDW-SD 52.2 fL; WBC 5.99 10^3/uL (4.4-10.8)
[2023-05-13 16:17] LABS: INR 1.2 (0.9-1.1); Prothrombin Time 11.8 sec (9.1-11.1)
[2023-05-13 16:28] LABS: Albumin 3.2 g/dL (3.4-5.0); Alkaline Phosphatase 384 U/L (46-116); Anion Gap 9.9 mmol/L (3-11); BUN 6 mg/dL (7-18); Bilirubin, Total 5.6 mg/dL (0.2-1.0); CO2 26.1 mmol/L (21.0-32.0); CREATININE 0.7 mg/dL (0.55-1.02); Calcium 9.1 mg/dL (8.5-10.1); Chloride 101 mmol/L (98-107); Estimated GFR 109.98 (mL/min/1.73m2); Glucose 103 mg/dL (74-106); Potassium 3.4 mmol/L (3.5-5.1); Sodium 137 mmol/L (136-145); Total Protein 8.8 g/dL (6.4-8.2)
[2023-05-13 16:45] LABS: HCG Quant, Pregnancy < 1 mIU/mL (1-3)
[2023-05-13 17:09] LABS: ALT > 10000 U/L (14-59)
[2023-05-13 18:56] LABS: AST 1475 U/L (15-37)
[2023-05-14 18:13] LABS: Hepatitis C Ab w Rflx HCV PCR Negative (Negative)
[2023-05-17 10:32] LABS: IgG 2172 mg/dL (610-1616)
[2023-05-17 13:02] LABS: Smooth Muscle Ab Screen Negative (Negative)
== END 2023-05-13 04:45 | disposition home or self-care (01) ==
PROVIDERS: PCP Physician Assistant Medical; Visit Provider Internal Medicine
DX: R74.01 Elevation of levels of liver transaminase levels (principal)
CPT/HCPCS: 36415; 80053; 82784; 86803; 84702; 85025; 85610; 86255

== ENCOUNTER 2023-06-03 03:37 | Outpatient (CLI) | payer BC, SELFPAY ==
[2023-06-03 15:51] LABS: INR 1.1 (0.9-1.1); Prothrombin Time 11.1 sec (9.1-11.1)
[2023-06-03 16:08] LABS: ALT 375 U/L (14-59); AST 186 U/L (15-37); Albumin 3.2 g/dL (3.4-5.0); Alkaline Phosphatase 241 U/L (46-116); Anion Gap 10.7 mmol/L (3-11); BUN 16 mg/dL (7-18); Bilirubin, Total 3.9 mg/dL (0.2-1.0); CO2 23.3 mmol/L (21.0-32.0); CREATININE 0.9 mg/dL (0.55-1.02); Calcium 8.8 mg/dL (8.5-10.1); Chloride 101 mmol/L (98-107); Estimated GFR 81.35 (mL/min/1.73m2); Glucose 179 mg/dL (74-106); Potassium 4.1 mmol/L (3.5-5.1); Sodium 135 mmol/L (136-145); Total Protein 7.9 g/dL (6.4-8.2)
== END 2023-06-03 03:38 | disposition home or self-care (01) ==
PROVIDERS: PCP Physician Assistant Medical; Visit Provider Internal Medicine
DX: R17 Unspecified jaundice (principal); R74.8 Abnormal levels of other serum enzymes
CPT/HCPCS: 36415; 80053; 85610

== ENCOUNTER 2023-06-11 02:51 | Outpatient (CLI) | payer BC, SELFPAY ==
[2023-06-11 14:23] LABS: INR 1.1 (0.9-1.1)
[2023-06-11 14:50] LABS: ALT 159 U/L (14-59); AST 65 U/L (15-37); Albumin 3.2 g/dL (3.4-5.0); Alkaline Phosphatase 154 U/L (46-116); Anion Gap 9.6 mmol/L (3-11); BUN 14 mg/dL (7-18); Bilirubin, Total 2.2 mg/dL (0.2-1.0); CO2 24.4 mmol/L (21.0-32.0); CREATININE 0.9 mg/dL (0.55-1.02); Calcium 8.9 mg/dL (8.5-10.1); Chloride 105 mmol/L (98-107); Estimated GFR 81.35 (mL/min/1.73m2); Glucose 129 mg/dL (74-106); Potassium 4.6 mmol/L (3.5-5.1); Sodium 139 mmol/L (136-145); TSH 0.01 uIU/Ml (0.36-3.74); Total Protein 7.5 g/dL (6.4-8.2)
[2023-06-11 14:58] LABS: Bilirubin, Direct 1.8 mg/dL (0.0-0.2)
[2023-06-17 11:32] LABS: 6-Methylmercaptopurine ribosid 9.15 nmol/mL/h (5.04-9.57)
== END 2023-06-11 02:52 | disposition home or self-care (01) ==
PROVIDERS: PCP Physician Assistant Medical; Visit Provider Internal Medicine
DX: K75.4 Autoimmune hepatitis (principal)
CPT/HCPCS: 36415; 80053; 80076; 82657; 84443; 85610

== ENCOUNTER 2023-06-18 02:41 | Outpatient (CLI) | payer BC, SELFPAY ==
[2023-06-18 13:30] LABS: INR 1.1 (0.9-1.1)
[2023-06-18 13:45] LABS: ALT 75 U/L (14-59); AST 35 U/L (15-37); Albumin 3.5 g/dL (3.4-5.0); Alkaline Phosphatase 118 U/L (46-116); Bilirubin, Direct 1.1 mg/dL (0.0-0.2); Bilirubin, Total 1.4 mg/dL (0.2-1.0); Total Protein 7.7 g/dL (6.4-8.2)
== END 2023-06-18 02:42 | disposition home or self-care (01) ==
PROVIDERS: PCP Physician Assistant Medical; Visit Provider Internal Medicine
DX: K75.4 Autoimmune hepatitis (principal)
CPT/HCPCS: 36415; 80076; 85610

== ENCOUNTER 2023-06-29 05:01 | Outpatient (CLI) | payer BC, SELFPAY ==
[2023-06-29 15:12] LABS: Abs Immature Grans 0.06 10^3/uL (0.0-0.06); Absolute Basophil Count 0.02 10^3/uL (0.0-0.2); Absolute Eosinophil Count 0.02 10^3/uL (0.0-0.7); Absolute Lymphocyte Count 1.13 10^3/uL (1.2-3.4); Absolute Monocyte Count 0.62 10^3/uL (0.1-0.8); Absolute Neutrophil Count 8.63 10^3/uL (1.2-6.7); Basophils % 0.2; Eosinophils % 0.2; HCT 38.7 % (36.0-46.0); HGB 12.7 g/dL (11.2-15.7); Immature Grans % 0.6; Lymphocytes % 10.8; MCH 27.1 pg (27.0-33.0); MCHC 32.8 % (32.0-36.0); MCV 83 fL (80-95); MPV 9.5 fL (8.0-11.0); Monocytes % 5.9; Neutrophils % 82.3; Platelet Count 287 10^3/uL (130-400); RBC 4.69 10^6/uL (3.93-5.22); RDW 13.2 % (11.7-14.6); RDW-SD 39.9 fL; WBC 10.48 10^3/uL (4.4-10.8)
[2023-06-29 15:25] LABS: INR 1.1 (0.9-1.1); Prothrombin Time 10.8 sec (9.1-11.1)
[2023-06-29 16:05] LABS: TSH (W/Ref FT4) 1.52 uIU/mL (0.36-3.74)
[2023-06-29 16:17] LABS: ALT 50 U/L (14-59); AST 26 U/L (15-37); Albumin 3.4 g/dL (3.4-5.0); Alkaline Phosphatase 98 U/L (46-116); Anion Gap 11.6 mmol/L (3-11); BUN 14 mg/dL (7-18); Bilirubin, Total 0.8 mg/dL (0.2-1.0); CO2 25.4 mmol/L (21.0-32.0); CREATININE 0.7 mg/dL (0.55-1.02); Calcium 8.9 mg/dL (8.5-10.1); Chloride 103 mmol/L (98-107); Estimated GFR 109.98 (mL/min/1.73m2); Glucose 98 mg/dL (74-106); Sodium 140 mmol/L (136-145); Total Protein 7.4 g/dL (6.4-8.2)
== END 2023-06-29 05:02 | disposition home or self-care (01) ==
PROVIDERS: PCP Physician Assistant Medical; Visit Provider Internal Medicine
DX: K75.4 Autoimmune hepatitis (principal)
CPT/HCPCS: 36415; 80053; 84443; 85025; 85610

== ENCOUNTER 2023-07-13 16:20 | Outpatient (REF) | payer BC, SELFPAY ==
[2023-07-13 16:38] LABS: ALT 53 U/L (14-59); AST 32 U/L (15-37); Albumin 3.5 g/dL (3.4-5.0); Alkaline Phosphatase 95 U/L (46-116); Bilirubin, Direct 0.3 mg/dL (0.0-0.2); Bilirubin, Total 0.6 mg/dL (0.2-1.0); Total Protein 7.1 g/dL (6.4-8.2)
== END 2023-07-13 16:21 | disposition home or self-care (01) ==
LOC: LBN 16:20
PROVIDERS: PCP Physician Assistant Medical; Visit Provider Internal Medicine
DX: K75.4 Autoimmune hepatitis (principal)
CPT/HCPCS: 80076

== ENCOUNTER 2023-07-27 14:50 | Outpatient (REF) | payer BC, SELFPAY ==
[2023-07-27 15:56] LABS: ALT 136 U/L (14-59); AST 100 U/L (15-37); Albumin 3.6 g/dL (3.4-5.0); Alkaline Phosphatase 190 U/L (46-116); Bilirubin, Total 0.6 mg/dL (0.2-1.0)
[2023-07-27 16:28] LABS: Bilirubin, Direct 0.3 mg/dL (0.0-0.2)
== END 2023-07-27 14:51 | disposition home or self-care (01) ==
LOC: NCHCN 14:50
PROVIDERS: Internal Medicine; PCP Physician Assistant Medical; Visit Provider Physician Assistant Medical
DX: K75.4 Autoimmune hepatitis (principal)
CPT/HCPCS: 80076

== ENCOUNTER 2023-08-04 13:12 | Outpatient (REF) | payer BC, SELFPAY ==
[2023-08-04 15:08] LABS: Abs Immature Grans 0.08 10^3/uL (0.0-0.06); Absolute Basophil Count 0.03 10^3/uL (0.0-0.2); Absolute Eosinophil Count 0.01 10^3/uL (0.0-0.7); Absolute Monocyte Count 0.61 10^3/uL (0.1-0.8); Basophils % 0.2 %; Eosinophils % 0.1 %; HCT 40.8 % (36.0-46.0); HGB 13.3 g/dL (11.2-15.7); Immature Grans % 0.6 %; MCHC 32.6 % (32.0-36.0); MCV 80 fL (80-95); MPV 10.4 fL (8.0-11.0); Monocytes % 4.4 %; Neutrophils % 86.7 %; Platelet Count 292 10^3/uL (130-400); RBC 5.12 10^6/uL (3.93-5.22); RDW 13.3 % (11.7-14.6); RDW-SD 38.5 fL; WBC 13.79 10^3/uL (4.4-10.8)
[2023-08-04 15:09] LABS: Absolute Neutrophil Count 11.96 10^3/uL (1.2-6.7)
[2023-08-04 15:42] LABS: ALT 239 U/L (14-59); AST 156 U/L (15-37); Albumin 3.6 g/dL (3.4-5.0); Alkaline Phosphatase 206 U/L (46-116); Anion Gap 9.8 mmol/L (3-11); BUN 14 mg/dL (7-18); Bilirubin, Direct 0.2 mg/dL (0.0-0.2); Bilirubin, Total 0.4 mg/dL (0.2-1.0); CO2 27.2 mmol/L (21.0-32.0); CREATININE 0.8 mg/dL (0.55-1.02); Calcium 8.7 mg/dL (8.5-10.1); Chloride 101 mmol/L (98-107); Estimated GFR 93.12 (mL/min/1.73m2); Glucose 141 mg/dL (74-106); Potassium 4.3 mmol/L (3.5-5.1); Sodium 138 mmol/L (136-145); Total Protein 7.1 g/dL (6.4-8.2)
[2023-08-07 11:39] LABS: 6-Thioguanine Nucleotides 128 (235 - 450)
== END 2023-08-04 13:13 | disposition home or self-care (01) ==
LOC: LBN 13:12
PROVIDERS: PCP Physician Assistant Medical; Visit Provider Internal Medicine
DX: K75.4 Autoimmune hepatitis (principal)
CPT/HCPCS: 80053; 80076; 80299; 85025

== ENCOUNTER 2023-08-19 08:34 | Outpatient (REF) | payer BC, SELFPAY ==
[2023-08-19 17:00] LABS: ALT 59 U/L (14-59); AST 20 U/L (15-37); Albumin 3.6 g/dL (3.4-5.0); Alkaline Phosphatase 98 U/L (46-116); Bilirubin, Direct 0.2 mg/dL (0.0-0.2); Bilirubin, Total 0.6 mg/dL (0.2-1.0); Total Protein 6.9 g/dL (6.4-8.2)
== END 2023-08-19 08:35 | disposition home or self-care (01) ==
LOC: LBN 08:34
PROVIDERS: PCP Physician Assistant Medical; Visit Provider Internal Medicine
DX: K75.4 Autoimmune hepatitis (principal)
CPT/HCPCS: 80076

== ENCOUNTER 2023-08-26 08:11 | Outpatient (REF) | payer BC, SELFPAY ==
[2023-08-26 16:34] LABS: ALT 47 U/L (14-59); AST 23 U/L (15-37); Albumin 3.7 g/dL (3.4-5.0); Alkaline Phosphatase 101 U/L (46-116); Bilirubin, Direct 0.2 mg/dL (0.0-0.2); Bilirubin, Total 0.7 mg/dL (0.2-1.0)
== END 2023-08-26 08:12 | disposition home or self-care (01) ==
LOC: LBN 08:11
PROVIDERS: PCP Physician Assistant Medical; Visit Provider Internal Medicine
DX: K75.4 Autoimmune hepatitis (principal)
CPT/HCPCS: 80076

== ENCOUNTER 2023-09-03 05:14 | Outpatient (CLI) | payer BC, SELFPAY ==
[2023-09-03 11:36] LABS: ALT 40 U/L (14-59); AST 19 U/L (15-37); Albumin 3.5 g/dL (3.4-5.0); Alkaline Phosphatase 82 U/L (46-116); Bilirubin, Direct 0.2 mg/dL (0.0-0.2); Bilirubin, Total 0.5 mg/dL (0.2-1.0); Total Protein 7.4 g/dL (6.4-8.2)
== END 2023-09-03 05:15 | disposition home or self-care (01) ==
PROVIDERS: PCP Physician Assistant Medical; Visit Provider Internal Medicine
DX: K75.4 Autoimmune hepatitis (principal)
CPT/HCPCS: 36415; 80076

== ENCOUNTER 2023-09-22 15:00 | Outpatient (REF) | payer BC, SELFPAY ==
[2023-09-22 20:18] LABS: ALT 37 U/L (14-59); AST 23 U/L (15-37); Albumin 3.7 g/dL (3.4-5.0); Alkaline Phosphatase 86 U/L (46-116); Bilirubin, Direct 0.2 mg/dL (0.0-0.2); Bilirubin, Total 0.56 mg/dL (0.2-1.0); Total Protein 7.4 g/dL (6.4-8.2)
== END 2023-09-22 15:01 | disposition home or self-care (01) ==
LOC: NCHCN 15:00
PROVIDERS: PCP Physician Assistant Medical; Visit Provider Physician Assistant Medical
DX: K75.4 Autoimmune hepatitis (principal)
CPT/HCPCS: 80076

== ENCOUNTER 2023-10-11 11:49 | Outpatient (REF) | payer BC, SELFPAY ==
[2023-10-11 15:34] LABS: ALT 36 U/L (14-59); AST 21 U/L (15-37); Albumin 3.5 g/dL (3.4-5.0); Alkaline Phosphatase 80 U/L (46-116); Bilirubin, Direct 0.2 mg/dL (0.0-0.2); Bilirubin, Total 0.46 mg/dL (0.2-1.0)
== END 2023-10-11 11:50 | disposition home or self-care (01) ==
LOC: NCHCN 11:49
PROVIDERS: PCP Physician Assistant Medical; Visit Provider Internal Medicine
DX: K75.4 Autoimmune hepatitis (principal)
CPT/HCPCS: 80076

== ENCOUNTER 2023-10-21 19:39 | Outpatient (REF) | payer BC, SELFPAY ==
[2023-10-21 18:14] LABS: ALT 40 U/L (14-59); AST 21 U/L (15-37); Albumin 3.6 g/dL (3.4-5.0); Alkaline Phosphatase 84 U/L (46-116); Bilirubin, Direct 0.1 mg/dL (0.0-0.2); Total Protein 7.3 g/dL (6.4-8.2)
== END 2023-10-21 19:40 | disposition home or self-care (01) ==
LOC: LBN 19:39
PROVIDERS: PCP Physician Assistant Medical; Visit Provider Internal Medicine
DX: K75.4 Autoimmune hepatitis (principal)
CPT/HCPCS: 80076

== ENCOUNTER 2023-11-08 08:43 | Outpatient (REF) | payer BC, SELFPAY ==
[2023-11-08 17:41] LABS: ALT 34 U/L (14-59); AST 20 U/L (15-37); Albumin 3.4 g/dL (3.4-5.0); Alkaline Phosphatase 88 U/L (46-116); Bilirubin, Direct 0.1 mg/dL (0.0-0.2); Bilirubin, Total 0.27 mg/dL (0.2-1.0); Total Protein 7.1 g/dL (6.4-8.2)
== END 2023-11-08 08:44 | disposition home or self-care (01) ==
LOC: LBN 08:43
PROVIDERS: PCP Physician Assistant Medical; Visit Provider Internal Medicine
DX: K75.4 Autoimmune hepatitis (principal)
CPT/HCPCS: 80076

== ENCOUNTER 2023-11-22 12:02 | Outpatient (REF) | payer BC, SELFPAY ==
[2023-11-22 16:01] LABS: ALT 34 U/L (14-59); AST 29 U/L (15-37); Albumin 3.5 g/dL (3.4-5.0); Alkaline Phosphatase 82 U/L (46-116); Bilirubin, Direct 0.1 mg/dL (0.0-0.2); Bilirubin, Total 0.37 mg/dL (0.2-1.0); Total Protein 7.3 g/dL (6.4-8.2)
== END 2023-11-22 12:03 | disposition home or self-care (01) ==
LOC: LBN 12:02
PROVIDERS: PCP Physician Assistant Medical; Visit Provider Internal Medicine
DX: K75.4 Autoimmune hepatitis (principal)
CPT/HCPCS: 80076

== ENCOUNTER 2023-12-07 18:13 | Outpatient (REF) | payer BC, SELFPAY ==
[2023-12-07 17:52] LABS: ALT 32 U/L (14-59); AST 22 U/L (15-37); Albumin 3.5 g/dL (3.4-5.0); Alkaline Phosphatase 102 U/L (46-116); Bilirubin, Direct 0.1 mg/dL (0.0-0.2); Bilirubin, Total 0.24 mg/dL (0.2-1.0); Total Protein 7.5 g/dL (6.4-8.2)
== END 2023-12-07 18:14 | disposition home or self-care (01) ==
LOC: LBN 18:13
PROVIDERS: PCP Physician Assistant Medical; Visit Provider Internal Medicine
DX: K75.4 Autoimmune hepatitis (principal)
CPT/HCPCS: 80076

== ENCOUNTER 2024-01-11 13:03 | Outpatient (REF) | payer BC, SELFPAY ==
[2024-01-11 15:17] LABS: Abs Immature Grans 0.05 10^3/uL (0.0-0.06); Absolute Basophil Count 0.05 10^3/uL (0.0-0.2); Absolute Eosinophil Count 0.39 10^3/uL (0.0-0.7); Absolute Lymphocyte Count 1.56 10^3/uL (1.2-3.4); Absolute Monocyte Count 0.91 10^3/uL (0.1-0.8); Basophils % 0.4 %; HCT 42.7 % (36.0-46.0); HGB 13.4 g/dL (11.2-15.7); Immature Grans % 0.4 %; Lymphocytes % 11.9 %; MCH 25.2 pg (27.0-33.0); MCHC 31.4 % (32.0-36.0); MCV 80 fL (80-95); MPV 10.7 fL (8.0-11.0); Monocytes % 6.9 %; Neutrophils % 77.4 %; Platelet Count 264 10^3/uL (130-400); RBC 5.32 10^6/uL (3.93-5.22); RDW 14.8 % (11.7-14.6); RDW-SD 43.4 fL; WBC 13.13 10^3/uL (4.4-10.8)
[2024-01-11 15:19] LABS: Absolute Neutrophil Count 10.16 10^3/uL (1.2-6.7)
[2024-01-11 15:31] LABS: Prothrombin Time 10.3 sec (9.1-11.1)
[2024-01-11 16:29] LABS: ALT 30 U/L (14-59); AST 26 U/L (15-37); Albumin 3.5 g/dL (3.4-5.0); Alkaline Phosphatase 98 U/L (46-116); Anion Gap 11.2 mmol/L (3-11); BUN 12 mg/dL (7-18); Bilirubin, Direct 0.1 mg/dL (0.0-0.2); Bilirubin, Total 0.43 mg/dL (0.2-1.0); CO2 25.8 mmol/L (21.0-32.0); CREATININE 0.8 mg/dL (0.55-1.02); Calcium 9.6 mg/dL (8.5-10.1); Chloride 103 mmol/L (98-107); Estimated GFR 93.12 (mL/min/1.73m2); Glucose 109 mg/dL (74-106); Potassium 3.8 mmol/L (3.5-5.1); Sodium 140 mmol/L (136-145); Total Protein 8.3 g/dL (6.4-8.2)
[2024-01-12 09:38] LABS: IgG 1424 mg/dL (610-1616)
== END 2024-01-11 13:04 | disposition home or self-care (01) ==
LOC: LBN 13:03
PROVIDERS: PCP Physician Assistant Medical; Visit Provider Internal Medicine
DX: K75.4 Autoimmune hepatitis (principal)
CPT/HCPCS: 80053; 80076; 82784; 85025; 85610

== ENCOUNTER 2024-02-02 22:12 | Outpatient (REF) | payer BC, SELFPAY | END 2024-02-02 22:13 | disposition home or self-care (01) | LOC: LBN 22:12 | PROVIDERS: PCP Physician Assistant Medical; Visit Provider Physician Assistant Medical | DX: L02.412 Cutaneous abscess of left axilla (principal) | CPT/HCPCS: 87077; 87070; 87186; 87205 ==

== ENCOUNTER 2024-02-07 18:37 | Outpatient (REF) | payer BC, SELFPAY ==
[2024-02-07 15:44] LABS: Abs Immature Grans 0.05 10^3/uL (0.0-0.06); Absolute Basophil Count 0.05 10^3/uL (0.0-0.2); Absolute Eosinophil Count 0.58 10^3/uL (0.0-0.7); Absolute Lymphocyte Count 2.51 10^3/uL (1.2-3.4); Absolute Monocyte Count 0.94 10^3/uL (0.1-0.8); Absolute Neutrophil Count 6.49 10^3/uL (1.2-6.7); Basophils % 0.5 %; Eosinophils % 5.5 %; HCT 40.7 % (36.0-46.0); Immature Grans % 0.5 %; Lymphocytes % 23.6 %; MCH 25.2 pg (27.0-33.0); MCHC 31.9 % (32.0-36.0); MCV 79 fL (80-95); MPV 9.7 fL (8.0-11.0); Monocytes % 8.9 %; Platelet Count 289 10^3/uL (130-400); RBC 5.16 10^6/uL (3.93-5.22); RDW-SD 43.3 fL; WBC 10.62 10^3/uL (4.4-10.8)
[2024-02-07 17:08] LABS: ALT 31 U/L (14-59); AST 25 U/L (15-37); Albumin 3.5 g/dL (3.4-5.0); Alkaline Phosphatase 93 U/L (46-116); Anion Gap 8.4 mmol/L (3-11); BUN 11 mg/dL (7-18); Bilirubin, Direct 0.1 mg/dL (0.0-0.2); Bilirubin, Total 0.39 mg/dL (0.2-1.0); CO2 27.6 mmol/L (21.0-32.0); CREATININE 0.7 mg/dL (0.55-1.02); Calcium 9.1 mg/dL (8.5-10.1); Chloride 102 mmol/L (98-107); Glucose 83 mg/dL (74-106); Potassium 3.9 mmol/L (3.5-5.1); Sodium 138 mmol/L (136-145); Total Protein 7.5 g/dL (6.4-8.2)
[2024-02-08 10:49] LABS: IgG 1402 mg/dL (610-1616)
== END 2024-02-07 18:38 | disposition home or self-care (01) ==
LOC: LBN 18:37
PROVIDERS: PCP Physician Assistant Medical; Visit Provider Internal Medicine
DX: K75.4 Autoimmune hepatitis (principal)
CPT/HCPCS: 80053; 80076; 82784; 85025; 85610

== ENCOUNTER 2024-03-08 12:51 | Outpatient (REF) | payer BC, SELFPAY ==
[2024-03-08 15:54] LABS: ALT 26 U/L (14-59); AST 22 U/L (15-37); Albumin 3.4 g/dL (3.4-5.0); Alkaline Phosphatase 89 U/L (46-116); Bilirubin, Direct 0.1 mg/dL (0.0-0.2); Bilirubin, Total 0.38 mg/dL (0.2-1.0); TSH (W/Ref FT4) 2.94 uIU/mL (0.36-3.74); Total Protein 7.8 g/dL (6.4-8.2); Vitamin D 25 Total 22.6 ng/mL (30-100)
== END 2024-03-08 12:52 | disposition home or self-care (01) ==
LOC: NCHCN 12:51
PROVIDERS: PCP Physician Assistant Medical; Visit Provider Physician Assistant Medical
DX: K75.4 Autoimmune hepatitis (principal); E03.9 Hypothyroidism, unspecified; E55.9 Vitamin D deficiency, unspecified
CPT/HCPCS: 80076; 82306; 84443

== ENCOUNTER 2024-05-23 16:00 | Outpatient (REF) | payer BC, SELFPAY ==
[2024-05-23 17:08] LABS: ALT 35 U/L (14-59); AST 25 U/L (15-37); Albumin 3.5 g/dL (3.4-5.0); Alkaline Phosphatase 95 U/L (46-116); Bilirubin, Direct 0.1 mg/dL (0.0-0.2); Bilirubin, Total 0.38 mg/dL (0.2-1.0); Total Protein 7.3 g/dL (6.4-8.2)
== END 2024-05-23 16:01 | disposition home or self-care (01) ==
LOC: LBN 16:00
PROVIDERS: PCP Physician Assistant Medical; Visit Provider Internal Medicine
DX: K75.4 Autoimmune hepatitis (principal)
CPT/HCPCS: 80076

== ENCOUNTER 2024-06-19 16:11 | Outpatient (REF) | payer BC, SELFPAY ==
[2024-06-19 19:40] LABS: ALT 37 U/L (14-59); AST 24 U/L (15-37); Albumin 3.7 g/dL (3.4-5.0); Alkaline Phosphatase 84 U/L (46-116); Bilirubin, Direct 0.2 mg/dL (0.0-0.2); Bilirubin, Total 0.6 mg/dL (0.2-1.0); Total Protein 7.5 g/dL (6.4-8.2)
== END 2024-06-19 16:12 | disposition home or self-care (01) ==
LOC: NCHCN 16:11
PROVIDERS: Internal Medicine; PCP Physician Assistant Medical; Visit Provider Physician Assistant Medical
DX: K75.4 Autoimmune hepatitis (principal)
CPT/HCPCS: 80076

== ENCOUNTER 2024-07-20 17:09 | Outpatient (REF) | payer BC, SELFPAY ==
[2024-07-20 16:35] LABS: ALT 46 U/L (14-59); AST 33 U/L (15-37); Albumin 3.8 g/dL (3.4-5.0); Alkaline Phosphatase 92 U/L (46-116); Bilirubin, Direct 0.2 mg/dL (0.0-0.2); Bilirubin, Total 0.5 mg/dL (0.2-1.0); Total Protein 7.7 g/dL (6.4-8.2)
== END 2024-07-20 17:10 | disposition home or self-care (01) ==
LOC: NCHCN 17:09
PROVIDERS: PCP Physician Assistant Medical; Visit Provider Physician Assistant Medical
DX: R94.5 Abnormal results of liver function studies (principal); K75.4 Autoimmune hepatitis
CPT/HCPCS: 80076

== ENCOUNTER 2024-08-22 14:17 | Outpatient (REF) | payer BC, SELFPAY ==
[2024-08-22 16:14] LABS: Abs Immature Grans 0.02 10^3/uL (0.0-0.06); Absolute Basophil Count 0.02 10^3/uL (0.0-0.2); Absolute Eosinophil Count 0.33 10^3/uL (0.0-0.7); Absolute Lymphocyte Count 1.77 10^3/uL (1.2-3.4); Absolute Neutrophil Count 4.93 10^3/uL (1.2-6.7); Basophils % 0.3 %; Eosinophils % 4.1 %; HCT 40.2 % (36.0-46.0); HGB 12.6 g/dL (11.2-15.7); Immature Grans % 0.3 %; Lymphocytes % 22.2 %; MCH 24.5 pg (27.0-33.0); MCHC 31.3 % (32.0-36.0); MCV 78 fL (80-95); MPV 11.1 fL (8.0-11.0); Monocytes % 11.3 %; Neutrophils % 61.8 %; Platelet Count 232 10^3/uL (130-400); RBC 5.14 10^6/uL (3.93-5.22); RDW 14.9 % (11.7-14.6); RDW-SD 42.1 fL; WBC 7.97 10^3/uL (4.4-10.8)
[2024-08-22 17:07] LABS: ALT 144 U/L (14-59); AST 99 U/L (15-37); Albumin 3.5 g/dL (3.4-5.0); Alkaline Phosphatase 94 U/L (46-116); Anion Gap 6.3 mmol/L (3-11); BUN 7 mg/dL (7-18); Bilirubin, Direct 0.1 mg/dL (0.0-0.2); Bilirubin, Total 0.7 mg/dL (0.2-1.0); CO2 29.7 mmol/L (21.0-32.0); CREATININE 0.7 mg/dL (0.55-1.02); Calcium 9.2 mg/dL (8.5-10.1); Calculated LDL 95 mg/dL (<100); Chloride 101 mmol/L (98-107); Cholesterol 154 mg/dL (<200); Estimated GFR 108.62 (mL/min/1.73m2); Glucose 90 mg/dL (74-106); HDL Cholesterol 51 mg/dL (>or=50); Potassium 3.7 mmol/L (3.5-5.1); Sodium 137 mmol/L (136-145); Total Protein 7.6 g/dL (6.4-8.2); Triglyceride 41 mg/dL (<150); Vitamin B12 411 pg/mL (193-986); Vitamin D 25 Total 22 ng/mL (30-100)
[2024-08-22 17:30] LABS: Hemoglobin A1C 5.5 % (<5.7)
[2024-08-23 09:58] LABS: Insulin 10.2 uIU/mL (<29.0)
== END 2024-08-22 14:18 | disposition home or self-care (01) ==
LOC: NCHCN 14:17
PROVIDERS: Internal Medicine; PCP Physician Assistant Medical; Visit Provider Physician Assistant Medical
DX: E66.813 Obesity, class 3 (principal); Z68.42 Body mass index [BMI] 45.0-49.9, adult
CPT/HCPCS: 80048; 80061; 80076; 82306; 82607; 83036; 83525; 85025

== ENCOUNTER 2024-09-04 18:26 | Outpatient (REF) | payer BC, SELFPAY ==
[2024-09-04 18:32] LABS: ALT 180 U/L (14-59); AST 65 U/L (15-37); Albumin 3.5 g/dL (3.4-5.0); Alkaline Phosphatase 105 U/L (46-116); Bilirubin, Direct 0.2 mg/dL (0.0-0.2); Bilirubin, Total 0.4 mg/dL (0.2-1.0); Total Protein 7.1 g/dL (6.4-8.2)
== END 2024-09-04 18:27 | disposition home or self-care (01) ==
LOC: LBN 18:26
PROVIDERS: PCP Physician Assistant Medical; Visit Provider Internal Medicine
DX: K75.4 Autoimmune hepatitis (principal)
CPT/HCPCS: 80076

== ENCOUNTER 2024-09-11 18:30 | Outpatient (REF) | payer BC, SELFPAY ==
[2024-09-11 16:46] LABS: ALT 103 U/L (14-59); AST 50 U/L (15-37); Albumin 3.8 g/dL (3.4-5.0); Alkaline Phosphatase 95 U/L (46-116); Bilirubin, Direct 0.2 mg/dL (0.0-0.2); Bilirubin, Total 0.6 mg/dL (0.2-1.0); Total Protein 7.5 g/dL (6.4-8.2)
== END 2024-09-11 18:31 | disposition home or self-care (01) ==
LOC: LBN 18:30
PROVIDERS: PCP Physician Assistant Medical; Visit Provider Internal Medicine
DX: K75.4 Autoimmune hepatitis (principal)
CPT/HCPCS: 80076

== ENCOUNTER 2024-09-25 18:10 | Outpatient (REF) | payer BC, SELFPAY ==
[2024-09-25 18:32] LABS: ALT 43 U/L (14-59); AST 18 U/L (15-37); Albumin 3.6 g/dL (3.4-5.0); Alkaline Phosphatase 88 U/L (46-116); Bilirubin, Direct 0.2 mg/dL (0.0-0.2); Bilirubin, Total 0.5 mg/dL (0.2-1.0); Total Protein 7.1 g/dL (6.4-8.2)
== END 2024-09-25 18:11 | disposition home or self-care (01) ==
LOC: NCHCN 18:10
PROVIDERS: PCP Physician Assistant Medical; Visit Provider Internal Medicine
DX: K75.4 Autoimmune hepatitis (principal)
CPT/HCPCS: 80076

== ENCOUNTER 2024-10-09 16:10 | Outpatient (REF) | payer BC, SELFPAY ==
[2024-10-09 17:55] LABS: ALT 31 U/L (14-59); AST 18 U/L (15-37); Albumin 3.6 g/dL (3.4-5.0); Alkaline Phosphatase 81 U/L (46-116); Bilirubin, Direct 0.1 mg/dL (0.0-0.2); Bilirubin, Total 0.5 mg/dL (0.2-1.0); Total Protein 7.1 g/dL (6.4-8.2)
== END 2024-10-09 16:11 | disposition home or self-care (01) ==
LOC: LBN 16:10
PROVIDERS: PCP Physician Assistant Medical; Visit Provider Internal Medicine
DX: K75.4 Autoimmune hepatitis (principal)
CPT/HCPCS: 80076

== ENCOUNTER 2024-10-23 16:56 | Outpatient (REF) | payer BC, SELFPAY ==
[2024-10-23 22:07] LABS: ALT 38 U/L (14-59); AST 21 U/L (15-37); Albumin 3.9 g/dL (3.4-5.0); Alkaline Phosphatase 81 U/L (46-116); Bilirubin, Direct 0.1 mg/dL (0.0-0.2); Bilirubin, Total 0.4 mg/dL (0.2-1.0); Total Protein 7.4 g/dL (6.4-8.2)
== END 2024-10-23 16:57 | disposition home or self-care (01) ==
LOC: LBN 16:56
PROVIDERS: PCP Physician Assistant Medical; Visit Provider Internal Medicine
DX: K75.4 Autoimmune hepatitis (principal)
CPT/HCPCS: 80076

== ENCOUNTER 2024-11-08 03:57 | Outpatient (CLI) | payer BC, SELFPAY ==
[2024-11-08 16:59] LABS: ALT 33 U/L (14-59); AST 21 U/L (15-37); Albumin 3.6 g/dL (3.4-5.0); Alkaline Phosphatase 79 U/L (46-116); Bilirubin, Direct 0.1 mg/dL (0.0-0.2); Bilirubin, Total 0.4 mg/dL (0.2-1.0); Total Protein 6.9 g/dL (6.4-8.2)
== END 2024-11-08 03:58 | disposition home or self-care (01) ==
PROVIDERS: PCP Physician Assistant Medical; Visit Provider Internal Medicine
DX: K75.4 Autoimmune hepatitis (principal)
CPT/HCPCS: 36415; 80076

== ENCOUNTER 2024-11-23 04:18 | Outpatient (CLI) | payer BC, SELFPAY ==
[2024-11-23 08:51] LABS: ALT 32 U/L (14-59); AST 21 U/L (15-37); Albumin 3.5 g/dL (3.4-5.0); Alkaline Phosphatase 79 U/L (46-116); Bilirubin, Direct 0.1 mg/dL (0.0-0.2); Bilirubin, Total 0.5 mg/dL (0.2-1.0); Total Protein 7.4 g/dL (6.4-8.2)
== END 2024-11-23 04:19 | disposition home or self-care (01) ==
PROVIDERS: PCP Physician Assistant Medical; Visit Provider Internal Medicine
DX: K75.4 Autoimmune hepatitis (principal)
CPT/HCPCS: 36415; 80076

== ENCOUNTER 2024-12-07 04:11 | Outpatient (CLI) | payer BC, SELFPAY ==
[2024-12-07 11:56] LABS: ALT 35 U/L (14-59); AST 29 U/L (15-37); Albumin 3.5 g/dL (3.4-5.0); Alkaline Phosphatase 79 U/L (46-116); Bilirubin, Direct 0.1 mg/dL (0.0-0.2); Bilirubin, Total 0.4 mg/dL (0.2-1.0); Total Protein 7.5 g/dL (6.4-8.2)
== END 2024-12-07 04:12 | disposition home or self-care (01) ==
PROVIDERS: PCP Physician Assistant Medical; Visit Provider Internal Medicine
DX: K75.4 Autoimmune hepatitis (principal)
CPT/HCPCS: 36415; 80076

== ENCOUNTER 2024-12-21 01:33 | Outpatient (CLI) | payer BC, SELFPAY ==
[2024-12-21 10:55] LABS: ALT 38 U/L (14-59); AST 28 U/L (15-37); Albumin 3.3 g/dL (3.4-5.0); Alkaline Phosphatase 83 U/L (46-116); Bilirubin, Direct 0.1 mg/dL (0.0-0.2); Bilirubin, Total 0.3 mg/dL (0.2-1.0); Total Protein 7.0 g/dL (6.4-8.2)
== END 2024-12-21 01:34 | disposition home or self-care (01) ==
LOC: LBO 01:33
PROVIDERS: PCP Physician Assistant Medical; Visit Provider Internal Medicine
DX: K75.4 Autoimmune hepatitis (principal)
CPT/HCPCS: 36415; 80076

== ENCOUNTER 2025-01-22 15:54 | Outpatient (REF) | payer BC, SELFPAY ==
[2025-01-22 17:10] LABS: ALT 30 U/L (14-59); AST 23 U/L (15-37); Albumin 3.6 g/dL (3.4-5.0); Alkaline Phosphatase 89 U/L (46-116); Bilirubin, Direct 0.1 mg/dL (0.0-0.2); Bilirubin, Total 0.3 mg/dL (0.2-1.0); Total Protein 7.1 g/dL (6.4-8.2)
== END 2025-01-22 15:55 | disposition home or self-care (01) ==
LOC: LBN 15:54
PROVIDERS: PCP Physician Assistant Medical; Visit Provider Internal Medicine
DX: K75.4 Autoimmune hepatitis (principal)
CPT/HCPCS: 80076

== ENCOUNTER 2025-02-26 21:24 | Outpatient (REF) | payer BC, SELFPAY ==
[2025-02-26 19:05] LABS: ALT 25 U/L (10-49); AST 25 U/L (<34); Albumin 4.3 g/dL (3.2-5.0); Alkaline Phosphatase 87 U/L (46-116); Bilirubin, Direct 0.1 mg/dL (<=0.3); Bilirubin, Total 0.40 mg/dL (0.2-1.2); Total Protein 7.1 g/dL (5.7-8.2)
== END 2025-02-26 21:25 | disposition home or self-care (01) ==
LOC: NCHCN 21:24
PROVIDERS: PCP Physician Assistant Medical; Visit Provider Physician Assistant Medical
DX: K75.4 Autoimmune hepatitis (principal)
CPT/HCPCS: 80076

== ENCOUNTER 2025-03-28 02:35 | Outpatient (CLI) | payer BC, SELFPAY ==
[2025-03-28 08:58] LABS: Abs Immature Grans 0.02 10^3/uL (0.0-0.06); HCT 41.3 % (36.0-46.0); HGB 13.3 g/dL (11.2-15.7); Immature Grans % 0.3 %; MCH 24.9 pg (27.0-33.0); MCHC 32.2 % (32.0-36.0); MCV 77 fL (80-95); MPV 9.8 fL (8.0-11.0); Platelet Count 264 10^3/uL (130-400); RBC 5.35 10^6/uL (3.93-5.22); RDW 13.9 % (11.7-14.6); RDW-SD 38.9 fL; WBC 6.97 10^3/uL (4.4-10.8)
[2025-03-28 10:08] LABS: ALT 20 U/L (10-49); AST 26 U/L (<34); Albumin 4.3 g/dL (3.2-5.0); Alkaline Phosphatase 85 U/L (46-116); Bilirubin, Direct 0.1 mg/dL (<=0.3); Bilirubin, Total 0.4 mg/dL (0.2-1.2); Total Protein 7.6 g/dL (5.7-8.2)
== END 2025-03-28 02:36 | disposition home or self-care (01) ==
PROVIDERS: PCP Physician Assistant Medical; Visit Provider Internal Medicine
DX: K75.4 Autoimmune hepatitis (principal)
CPT/HCPCS: 36415; 80076; 85025